=== PATIENT | male | born 1960 | race Hispanic/Latino ===

== ENCOUNTER 2020-11-01 17:05 | Observation (INO) | payer MEDICAID, SELFPAY ==
--- NOTE | ~2020-11-01 | CT_ITS ---
EXAMINATION: CT abdomen pelvis w con DATE: 11/01/2020 20:52 INDICATION: Epigastric pain. TECHNIQUE: Computed tomography (CT) of the abdomen and pelvis was performed with 100 mL Omnipaque-350 intravenous contrast. Automated exposure control and iterative reconstruction technique were employe d. The dose-length product was 1150.15 mGy-cm. COMPARISON: None FINDINGS: Patchy opacities in the lingula, right middle and bilateral lower lobes with appearance most suspicio us for COVID pneumonia. Heart size is normal. No pericardial effusion. Small sliding-type hiatal manuel ia. Diffuse hepatic steatosis. Gallbladder, spleen, pancreas, right kidney and bilateral adrenal glan ds are normal. 1.5 cm left renal cyst. Moderate sigmoid diverticulosis without adjacent inflammatory change to suggest diverticulitis. Small bowel and appendix are normal. Bladder is normal. Prostatomeg aislinn. No free intraperitoneal gas or fluid. No pathologically enlarged abdominal or pelvic lymphadenop athy. Bilateral L5 pars intra-articular is defects without spondylolisthesis. Mild thoracolumbar spon dylosis. IMPRESSION: 1. Patchy bilateral lung disease with appearance suspicious for COVID pneumonia. 2. Diffuse hepatic steatosis. 3. Small sliding-type hiatal hernia. 4. Moderate sigmoid diverticulosis. 5. Prostatomegaly. Reviewed, dictated and finalized at location A. IMPRESSION: 1. Patchy bilateral lung disease with appearance suspicious for COVID pneumonia . 2. Diffuse hepatic steatosis. 3. Small sliding-type hiatal hernia. 4. Moderate sigmoid diverticulosis. 5. Prostatomegaly.
--- NOTE | ~2020-11-01 | XR_ITS ---
EXAMINATION: XR chest 2V DATE: 11/01/2020 21:08 INDICATION: Cough, shortness of breath and fever TECHNIQUE: PA and lateral views of the chest were obtained. COMPARISON: None FINDINGS: Patchy airspace opacities throughout both lungs. No pleural effusion or pneumothorax. Heart size is n ormal. IMPRESSION: 1. Diffuse bilateral lung disease concerning for pneumonia including COVID pneumonia. Reviewed, dictated and finalized at location A. IMPRESSION: 1. Diffuse bilateral lung disease concerning for pneumonia including COVID pneu monia.
--- NOTE | ~2020-11-01 | CT_ITS ---
EXAMINATION: CTA chest PE protocol DATE: 11/02/2020 10:22 INDICATION: COVID. Hypoxia. TECHNIQUE: Computed tomography (CT) pulmonary angiogram of the chest was performed with 100 mL Omnipa que-350 intravenous contrast. Additional 3D reconstructions utilizing coronal maximum intensity proje ction (MIP) were performed. Automated exposure control and iterative reconstruction technique were em ployed. The dose-length product was 549.80 mGy-cm. COMPARISON: None FINDINGS: Good contrast opacification of the pulmonary arteries. There is moderate streak artifact from dense c ontrast in the superior vena cava and right atrium. Extensive severe respiratory motion artifact. Tog ether this renders evaluation more peripheral than the lobar pulmonary arteries in the right upper an d bilateral lower lobes and in the segmental pulmonary arteries in the left upper, right middle lobes and lingula essentially nondiagnostic. No central pulmonary embolism identified. Small lung volumes with patchy airspace opacities scattered throughout both lungs consistent with COVID pneumonia. No pl eural effusion or pneumothorax. Heart size is normal. No pericardial effusion. Thoracic aorta is norm al in caliber with no dissection. No pathologically enlarged thoracic lymphadenopathy. Diffuse hepati c steatosis. Mild scattered degenerative skeletal changes in the spine and bilateral shoulders. IMPRESSION: 1. No central pulmonary embolism through the lobar and a few the segmental pulmonary arteries with mo re peripheral evaluation essentially nondiagnostic primarily due to large amount of motion artifact. 2. Small lung volumes with extensive bilateral patchy airspace opacities consistent with COVID pneumo abigail. Reviewed, dictated and finalized at location A. IMPRESSION: 1. No central pulmonary embolism through the lobar and a few the segmental pulm onary arteries with more peripheral evaluation essentially nondiagnostic primar kathryn due to large amount of motion artifact. 2. Small lung volumes with extensive bilateral patchy airspace opacities consis tent with COVID pneumonia.
[2020-11-01 17:11] VITALS: BP 175/108; PULSE 120; RESP 20; TEMP 36.7; O2SAT 94
[2020-11-01 17:27] LABS: Basophils Percent Auto 0.1 % (0.2-1.2); Hematocrit 43.5 % (42.0-52.0); Hemoglobin 15.4 g/dL (14.0-18.0); Immature Granulocyte Absolute 0.04 K/mm3 (0.00-0.031); Immature Granulocyte Percent A 0.5 % (0-0.5); Lymphocytes Absolute Auto 0.64 K/mm3 (0.9-3.2); Lymphocytes Percent Auto 8.2 % (18.3-44.2); Mean Corpuscular HGB Conc 35.4 g/dl (32-36); Mean Corpuscular Hemoglobin 30.6 pg (26-34); Mean Corpuscular Volume 86.3 fl (80-100); Mean Platelet Volume 10.1 fl (7.4-10.4); Monocytes Absolute Auto 0.4 K/mm3 (0.1-0.6); Monocytes Percent Auto 4.9 % (2.6-8.5); Neutrophils Absolute Auto 6.7 K/mm3 (1.3-6.7); Neutrophils Percent Auto 86.3 % (45.5-73.1); Platelet Count Result 256 k/mm3 (150-375); Red Blood Count 5.04 M/mm3 (4.6-6.20); Red Cell Distribution Width 12.1 % (11.5-14.5); White Blood Count 7.8 K/mm3 (4.5-10.0)
[2020-11-01 17:33] LABS: Add Urine Microscopic? YES; Appearance Urine Clear (Clear); Bilirubin Urine Negative (Negative); Blood Urine Negative (Negative); Color Urine Yellow (Yellow); Glucose Urine UA Negative (Negative); Ketones Urine Negative (Negative); Leukocyte Esterase Ur Negative LEU/UL (Negative); Nitrate Urine Negative (Negative); Protein Urine 2+ mg/dL (Negative); Specific Grav Ur 1.011 (1.001-1.035); WBC Urine 0-3 /hpf
[2020-11-01 17:36] LABS: Alanine Aminotransferase 123 U/L (4-50); Albumin Level 4.2 g/dL (3.5-5.1); Alkaline Phosphatase 102 U/L (38-126); Anion Gap 9 mmol/L (8-16); Aspartate Amino Transferase 80 U/L (17-59); Bilirubin,Total 0.7 mg/dL (0.2-1.3); Blood Urea Nitrogen 7 mg/dL (9-20); Calcium 9.2 mg/dL (8.4-10.2); Carbon Dioxide 23 mmol/L (22-30); Chloride 101 mmol/L (98-107); Estimated CRCL calculation 83 ml/min; Estimated Glomerular Filt Rate > 60; Glucose 128 mg/dL (65-110); Lipase 86 U/L (23-300); Potassium 3.7 mmol/L (3.4-5.0); Sodium 133 mmol/L (137-145)
[2020-11-01] MEDS: MAG HYDROX/AL HYDROX/SIMETH 30 ML UDC PO (20:01)
[2020-11-01] MEDS: SODIUM CHLORIDE 0.9% IV 1,000 ML 999 ML IV CONT ×2 (20:01→21:35)
[2020-11-01] MEDS: LIDOCAINE HCL 2% VISC SOLN 15 ML UDC 20 ML PO (20:01)
[2020-11-01] MEDS: ONDANSETRON INJ 4 MG/2 ML VIAL IV PUSH (20:01)
--- NOTE | 2020-11-01 20:26 | ED.ABDPAIN ---
HPI - Abdominal Pain General Chief Complaint: Abdominal Pain Stated Complaint: abd pain Time Seen by Provider: 11/01/20 19:10 History of Present Illness HPI narrative: Patient presents with abdominal pain nausea and decreased appetite. Patient reports symptoms have been present for the past 4 days and getting worse over to come in for evaluation. Reports he has no appetite to eat anything and he feels like something is stuck in the epigastric area. He is attempted self-induced emesis but has not alleviated his symptoms reports mild diarrhea. He denies any significant past medical history he reports been trying [id number] medications but has not been helpful. Related Data Home Medications Medication Instructions Recorded Confirmed No Home Medications 11/01/20 11/01/20 Allergies Allergy/AdvReac Type Severity Reaction Status Date / Time No Known Allergies Allergy Verified 11/01/20 17:14 Review of Systems Review of Systems: CONSTITUTIONAL: Denies fever, chills, or sweats. EYES: Denies visual changes, redness, or discharge. ENT: Denies rhinorrhea, congestion, sore throat, or otalgia. CARDIOVASCULAR: Denies chest pain, palpitations, or edema. RESPIRATORY: Denies dyspnea. Reports mild cough GASTROINTESTINAL: Reports abdominal pain and nausea GENITOURINARY: Denies dysuria or hematuria. SKIN: Denies rash or itching. MUSCULOSKELETAL: Denies back pain, joint pain, or myalgia. NEUROLOGIC: Denies headache, numbness, dizziness, or weakness. PSYCHIATRIC: Denies anxiety or depression. Exam Narrative: GENERAL: Well-appearing, well-nourished, and in no acute distress. HEAD: Normocephalic, atraumatic. EYES: PERRLA and EOMI. ENT: Nares clear, no rhinorrhea or epistaxis. Mucous membranes moist. NECK: Supple. No masses. No JVD ABDOMEN: Mild tenderness in the epigastric area soft, nondistended, normal active bowel sounds. EXTREMITIES: Normal range of motion. No edema. SKIN: Warm, dry, no rash. NEURO: No focal deficits. Alert and oriented x3. PSYCH: Normal mood and affect. Course Reevaluation(s) Reevaluation #1: Patient is resting comfortably tachycardia is improved patient has continued elevated respiratory rate and intermittent hypoxia to low 90s. Primary concern for patient is Covid pneumonia patient would benefit from admission patient comfortable with admission plan hospitalist consultation requested Date: 11/01/20 Time: 21:49 Vital Signs Vital signs: Vital Signs Temperature 36.7 C 11/01/20 17:11 Pulse Rate 120 H 11/01/20 17:11 Respiratory Rate 20 11/01/20 17:11 Blood Pressure 175/108 H 11/01/20 17:11 Pulse Oximetry 94 11/01/20 17:11 Temperature 36.7 C 11/01/20 17:11 Pulse Rate 97 11/01/20 22:59 Respiratory Rate 36 H 11/01/20 22:59 Blood Pressure 157/90 H 11/01/20 22:59 Pulse Oximetry 92 11/01/20 22:59 MDM - Abdominal Pain MDM Narrative Medical decision making narrative: Patient presented with generalized not feeling well nausea and primary concern of epigastric pain. Patient did report cough. He was initially tachycardic with hypertension and elevated respiratory rate. Labs imaging obtained. CT of the abdomen initially obtained due to patient's complaint of epigastric pain abdominal findings were unremarkable however there were concerns for pneumonia on the base of the lungs. Chest x-ray confirmed. Given patient's elevated respiratory rate mild hypoxia he was admitted for further management. Lab Data Result diagrams: 11/01/20 17:20 11/01/20 17:20 Labs: Lab Results 11/01/20 11/01/20 11/01/20 Range/Units 17:20 17:20 17:25 WBC 7.8 (4.5-10.0) K/mm3 RBC 5.04 (4.6-6.20) M/mm3 Hgb 15.4 (14.0-18.0) g/dL Hct 43.5 (42.0-52.0) % MCV 86.3 (80-100) fl MCH 30.6 (26-34) pg MCHC 35.4 (32-36) g/dl RDW 12.1 (11.5-14.5) % Plt Count 256 (150-375) k/mm3 MPV 10.1 (7.4-10.4) fl Immature Gran % (Auto)
[2020-11-01 20:30] VITALS: BP 149/94; PULSE 92; RESP 38
--- NOTE | 2020-11-01 20:58 | ECG_ITS ---
Measurements Intervals [place] Rate: 95 P: 55 FL: 162 QRS: 13 QRSD: 106 T: 45 QT: 342 QTc: 430 Interpretive Statements SINUS RHYTHM INCOMPLETE RIGHT BUNDLE BRANCH BLOCK MINIMAL Q WAVES- INFERIOR LEADS BASELINE ARTIFACT- II, III, AVF, V2-V6 BORDERLINE ECG Electronically Signed On 11-02-2020 6:50:59 CDT by Santino Bauer D.O.
[2020-11-01 21:56] VITALS: BP 155/97; PULSE 99; RESP 40; O2SAT 94
[2020-11-01 22:06] LABS: Lactic Acid Reflex 0.7 mmol/L (0.7-2.1)
[2020-11-01] MEDS: DEXAMETHASONE SOD PHOS INJ 4 MG/ML VIAL 6 MG IV PUSH (22:58)
[2020-11-01 22:59] VITALS: BP 157/90; PULSE 97; RESP 36; O2SAT 92
[2020-11-01 23:16] LABS: Alveolar/Arterial O2 Gradient 49.3 mmHg; Base Excess ABG -1.2 mEq/l (+/-2.0); Fractional Inspired Oxygen 21 %; HCO3 ABG 21.5 mEq/l (22.0-26.0); Oxygen Content ABG 18.6 %vol (16.0-22.0); Oxygen Saturation ABG 93.7 % (95.0-100.0); Oxyhemoglobin 90.9 % THb (90.0-100.0); PCO2 ABG 30.8 mmHg (35.0-45.0); PO2 ABG 63.5 mmHg (80.0-100.0); PO2 FiO2 Ratio Arterial Blood 3.02 %; Total Hemoglobin 14.6 g/dL (12.0-18.0); pH ABG 7.462 (7.350-7.450)
[2020-11-01 23:19] LABS: Device ROOM AIR; Modified Allen's Test Pass; Site Drawn RIGHT RADIAL
[2020-11-02] VITALS (9 sets, daily range): BP systolic 147–164; BP diastolic 84–105; PULSE 73–99; RESP 14–18; TEMP 36.3–36.9; O2SAT 91–94
--- NOTE | 2020-11-02 01:15 | ADMGEN ---
This patient, Samuel Unger, was admitted to [facility] Surg Room 310-01. Patient/family oriented to hospital policies and general routines including ID bracelet, bed and alarms, visiting hours, pain management, procedures, bathroom and other care routines, personal items, smoking policy, room service/diet, and visiting hours. Information on how to activate the Rapid Response Team has been discussed. Patient/Family are encouraged to report perceived risks to care and to ask questions if they do not understand what they are told or what they should do.
[2020-11-02] MEDS: SODIUM CHLORIDE 0.9% IV 1,000 ML 125 ML IV CONT (01:30)
--- NOTE | 2020-11-02 04:53 | PM.IMHP ---
H&P: HPI History of Present Illness Date/Time: 11/02/20 04:53 Chief Complaint: Abdominal pain shortness of breath Narrative: Patient presents to the ED with complaint of abdominal pain nausea for the past few days and getting worse. He also reports some diarrhea. He has lost his appetite and overall not feeling well. He has been sweating a lot but no fever or chills reported. Denies any significant past medical history. He has the [place]iny[place] speaking in history is limited because of language barrier. In the ER he was noted to have tachypnea in 30s to 40s hypertension of and tachycardic initial evaluation he had intermittent hypoxia to low 90s in the ER. With his [place] abdominal symptoms CT abdomen was done which was unremarkable for any acute findings however revealed patchy bilateral lung disease with the appearance suspicious for COVID pneumonia. A chest x-ray was further obtained which showed diffuse bilateral lung disease concerning for pneumonia. Since he already got contrast with abdominal pelvis CT CTA was not performed tonight. He does report some cough that has been ongoing since past few days. Review of Systems Review of Systems: - CONSTITUTIONAL: Denies weight loss, fever and chills. Reports excessive sweating - HEENT: Denies changes in vision and hearing - RESPIRATORY: Reports SOB and cough. - CV: Denies palpitations and CP. - GI: Reports abdominal pain, nausea, vomiting and diarrhea. - : Denies dysuria and urinary frequency. - MSK: Denies myalgia and joint pain. - SKIN: Denies rash and pruritus. - NEUROLOGICAL: Denies headache and syncope. - PSYCHIATRIC: Denies recent changes in mood. Denies anxiety and depression. All systems reviewed & are unremarkable except as noted in HPI and below Constitutional: Constitutional: Reports fatigue and Reports weakness Neurologic: Reports weakness Endocrine: Endocrine: Reports fatigue [facility] Social History Social History Years smoked: 20 Smoking status: Former smoker Meds Home Medications and Allergies Home Medications Medication Instructions Recorded Confirmed Type No Home Medications 11/01/20 History Allergies Allergy/AdvReac Type Severity Reaction Status Date / Time No Known Allergies Allergy Verified 11/01/20 17:14 Vital Signs Vital Signs - 24 hr 11/01/20 17:11 11/01/20 20:30 11/01/20 21:56 Temperature 98.0 F Pulse Rate 120 H 92 99 Respiratory Rate 20 38 H 40 H Blood Pressure 175/108 H 149/94 H 155/97 H Pulse Oximetry 94 94 11/01/20 22:59 11/02/20 01:20 11/02/20 04:00 Temperature 97.3 F L Pulse Rate 97 99 73 Respiratory Rate 36 H 18 Blood Pressure 157/90 H 153/98 H Pulse Oximetry 92 92 Exam Narrative: GENERAL: The patient is well developed, not in acute distress HEENT: Nonicteric sclerae, PERRLA, EOMI. Oropharynx clear. Moist mucous membranes. Conjunctivae appear well perfused. CHEST: Chest wall is nontender. HEART: Regular rate and rhythm without murmur, rubs, or gallops LUNGS: Clear to auscultation bilaterally. no respiratory distress ABDOMEN: Soft, positive bowel sounds, non-tender, no organomegaly. SKIN: No rash, no excessive bruising, petechiae, or purpura. NEUROLOGIC: Cranial nerves II-XII intact, alert and oriented x 3, no gross motor deficits EXTREMITIES: no edema, cyanosis or clubbing Extrem: General: normal exam except as noted and no edema H&P: Results Labs Labs: Short CBC 11/01/20 Range/Units 17:20 WBC 7.8 (4.5-10.0) K/mm3 Hgb 15.4 (14.0-18.0) g/dL Hct 43.5 (42.0-52.0) % Plt Count 256 (150-375) k/mm3 BMP 11/01/20 17:20 Sodium 133 L Potassium 3.7 Chloride 101 Carbon Dioxide 23 BUN 7 L Creatinine 0.90 Glucose 128 H Calcium 9.2 Liver Function 11/01/20 Range/Units 17:20 Total Bilirubin 0.7 (0.2-1.3) mg/dL AST 80 H (17-59) U/L ALT 123 H (4-50) U/L Alkaline Ph
[2020-11-02 07:53] LABS: D Dimer 1.16 ug/mL (<0.48)
[2020-11-02 08:25] LABS: Procalcitonin 0.3 ng/mL
[2020-11-02 09:19] LABS: Lactate Dehydrogenase 904 U/L (313-618)
[2020-11-02] MEDS: DEXAMETHASONE SOD PHOS INJ 4 MG/ML VIAL 6 MG IV PUSH (10:30)
[2020-11-02] MEDS: ENOXAPARIN 40 MG/0.4 ML SYRINGE SUB-Q (10:30)
[2020-11-02 11:42] LABS: Ferritin > 2000.00 ng/mL (11.1-264)
[2020-11-02 12:12] LABS: CRP 16.5 mg/dL (<1.0)
--- NOTE | 2020-11-02 18:37 | PM.DS ---
DS: Admitting Diagnosis Admitting Diagnosis Suspected COVID-19 with hypoxia DS: Discharge Diagnosis Discharge Diagnosis (1) Suspected COVID-19 virus infection: Code(s): Z20.822 - Contact with and (suspected) exposure to COVID-19 Status: Acute Assessment and Plan: -high likelihood of COVID-19 based off of imaging -CTA did not find any pulmonary embolism, with some motion artifact nondiagnostic for distal vessels -COVID 19 test pending -patient breathing comfortably on room air not requiring oxygen -GI symptoms are also consistent with COVID 19 diagnosis -patient recommended supportive care at home with Tylenol, patient to follow-up with PCP in 2 weeks -patient advised to keep pulse oximeter and return to hospital if hypoxic (2) Pneumonia due to COVID-19 virus: Code(s): U07.1 - COVID-19; J12.82 - Pneumonia due to coronavirus disease 2018 Status: Acute Assessment and Plan: High pretest probability based off of imaging studies. Awaiting COVID 19 results DS: Summary Hospital Course Reason for hospitalization: Suspected COVID-19, hypoxia Hospital Course: Patient is a 60-year-old Taiwanese-speaking male with no past medical history presents to ED with complaints of dyspnea and diarrhea for the past few days getting worse. In the ED he had a CT abdomen pelvis to workup the diarrhea and findings were consistent with bilateral lung disease suspicious for COVID-19. He was not vaccinated for COVID-19. Chest x-ray is consistent with pneumonia. He was admitted with presumptive diagnosis of COVID-19 started on Decadron. Craft Coordinator service was used to discuss findings and plan with patient. He was not hypoxic however was tachypneic in the ED prompting his admission. CTA showed no pulmonary embolism however with motion artifact nondiagnostic for distal vessels. Clinically felt much better after IV fluids. Patient not requiring any oxygen and breathing at a regular rate. With patient not being hypoxic he can be managed with supportive care. Patient's COVID-19 test is pending however high likelihood of test being positive. Patient will be discharged home to quarantine for 2 weeks for presumptive COVID-19. He is advised to buy a pulse oximeter and keep track of his oxygen level for if it is to drop below 90% to come back to the hospital. he will continue Tylenol for fever and myalgias. Patient to follow-up with his PCP in 2 weeks after quarantine complete. Patient's vitals stable, labs stable, patient is stable for discharge. Patient understands and agrees with plan. Status at Discharge Cognitive/behavioral status at discharge: At baseline Functional status at discharge: independent ambulation Overall status at discharge: patient is back to baseline Time Spent with Patient Time attestation: Total time spent providing and/or coordinating discharge services:35 Time spent: Greater than 30 minutes Specific discharge activities: Quarantine Exam Narrative: - GENERAL: Pleasant well-nourished Taiwanese-speaking male in no acute distress breathing comfortably on room air. - EYES: EOMI. Anicteric. - HENT: Moist mucous membranes. - LUNGS: Clear to auscultation bilaterally, no wheezing, rhonchi, or rales. Nonlabored respirations. - CARDIOVASCULAR: Regular rate and rhythm. No murmur. No JVD. - ABDOMEN: Soft, non-tender and non-distended. No palpable masses. - EXTREMITIES: No edema. Peripheral pulses 2+. Non-tender. - NEUROLOGIC: No focal neurological deficits. CN II-XII grossly intact. - PSYCHIATRIC: Awake, Alert and oriented x 3. Appropriate mood and affect. - SKIN: No rashes or lesions. Warm. - LYMPH: No cervical lymphadenopathy. DS: Data Data Completed and Pending Labs on day of discharge: Labs from last 24 hours 11/02/20 11/02/20 11/02/20 06:56 06:56 06:56 D-Dimer Puncture Site ABG pH ABG pCO2 ABG pO2 ABG PO2/FiO2 Ratio ABG HCO3 ABG O2 Saturation ABG O2 Content ABG
--- NOTE | 2020-11-02 19:39 | PC.NURSE ---
Dash used to discharge the patient Vj #[id number] patient states no questions at this time.
[2020-11-03 18:30] LABS: SARS-CoV-2 RNA PCR Negative
== END 2020-11-02 20:03 | disposition home or self-care (01) ==
LOC: ANHED 20:00 → ANH3MEDSUR 23:59
PROVIDERS: Emergency Medicine; Admitting Provider Internal Medicine; Emergency Provider Emergency Medicine; Visit Provider Student in an Organized Health Care Education/Training Program
DX: J18.9 Pneumonia, unspecified organism (principal); R06.82 Tachypnea, not elsewhere classified; R09.02 Hypoxemia; R11.0 Nausea; Z87.891 Personal history of nicotine dependence; Z20.822 Contact with and (suspected) exposure to COVID-19
CPT/HCPCS: 36415; 36600; 71046; 71275; 74177; 80053; 81001; 82728; 82805; 83605; 83615; 83690; 84145; 85025; 85380; 86140; 93005; 96361; 96365; 96367; 96372; 96374; 96375; 99285; A9270; C9803; G0378; J0456; J0696; J1100; J1650; J2405; J7030; Q9967; U0003; U0005